=== PATIENT | female | born 1990 | race Caucasian/White ===

== ENCOUNTER 2021-05-10 03:36 | Emergency (ER) | payer OTHER, SELFPAY ==
[2021-05-10 05:41] LABS: Urine Blood Negative (Negative); Urine Glucose Negative (Negative); Urine Protein Trace (Negative); Urine pH 7.5 (5.0-7.0)
[2021-05-10 05:42] LABS: Absolute Lymphocytes (CBC) 1.7 K/uL (0.7-4.9); Basophils % 0.6 % (0-1.3); Hematocrit 38.6 % (36.0-45.0); Lymphocytes % 15.9 % (15.3-44.8); MPV 7.9 fL (7.6-11.3); RBC Red Blood Cell Count 5.18 M/uL (3.86-4.86)
[2021-05-10 06:05] LABS: Albumin 3.5 g/dL (3.4-5.0); Bilirubin Direct 0.4 mg/dL (0-0.2); Bilirubin Total 0.7 mg/dL (0.2-1.0); Potassium 3.9 mmol/L (3.5-5.1); Protein, Total 7.7 g/dL (6.4-8.2)
--- NOTE | 2021-05-10 06:35 | ER ---
Nurse's Notes [facility] Name: Blanche Bishop Age: 31 yrs Sex: Female : 1990 Arrival Date: 05/10/2021 Time: 03:44 Bed 13 Private MD: Diagnosis: Other cholelithiasis without obstruction Presentation: 05/10 04:31 Chief complaint: Patient states: lower abdominal pain that radiates into back that em started Tuesday, also reports N/D, denies fever. Coronavirus screen: Vaccine status: Patient reports receiving the 2nd dose of the covid vaccine. Ebola Screen: Patient negative for fever greater than or equal to 101.5 degrees Fahrenheit, and additional compatible Ebola Virus Disease symptoms Patient denies exposure to infectious person. Patient denies travel to an Ebola-affected area in the 21 days before illness onset. No symptoms or risks identified at this time. Initial Sepsis Screen: Does the patient meet any 2 criteria? No. Patient's initial sepsis screen is negative. Does the patient have a suspected source of infection? No. Patient's initial sepsis screen is negative. Risk Assessment: Do you want to hurt yourself or someone else? Patient reports no desire to harm self or others. Onset of symptoms was May 10, 2021. 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 - Social history:: Smoking status: Patient denies any tobacco usage or history of. Screenin:27 Abuse screen: Denies threats or abuse. Denies injuries from another. Nutritional bs2 screening: No deficits noted. Tuberculosis screening: No symptoms or risk factors identified. Fall Risk None identified. Assessment: 06:27 General: Appears uncomfortable, obese, well groomed, well developed, well nourished, bs2 Behavior is calm, cooperative, appropriate for age. Pain: Complains of pain in diaphragm Pain currently is 8 out of 10 on a pain scale. Pain began 2-3 days ago. Neuro: No deficits noted. Cardiovascular: No deficits noted. Respiratory: No deficits noted. GI: Reports lower abdominal pain, diarrhea, nausea. : No signs and/or symptoms were reported regarding the genitourinary system. EENT: No signs and/or symptoms were reported regarding the EENT system. Derm: No signs and/or symptoms reported regarding the dermatologic system. Musculoskeletal: No signs and/or symptoms reported regarding the musculoskeletal system. Vital Signs: 04:31 BP 132 / 85; Pulse 85; Resp 18; Temp 98.6(O); Pulse Ox 99% on R/A; Weight 136.08 kg; em Height 5 ft. 7 in. (170.18 cm); Pain 5/10; 05:30 BP 118 / 66; Pulse 72; Resp 16; Pulse Ox 100% on R/A; bs2 06:00 BP 126 / 70; Pulse 93; Resp 17; Pulse Ox 100% ; bs2 04:31 Body Mass Index 46.99 (136.08 kg, 170.18 cm) em ED Course: 03:44 Patient arrived in ED. wm 04:33 Triage completed. em 04:33 Arm band placed on. em 04:53 Trey Wells MD is Attending Physician. tw4 05:19 Sabra Strauss, RN is Primary Nurse. bs2 05:19 Abdomen Limited US Sent. bs2 05:37 Abdomen Limited US In Process Unspecified. EDMS 05:40 Inserted saline lock: 18 gauge in left antecubital area, using aseptic technique. bs2 06:26 Urine --Ancillary (enter results) Sent. bs2 06:26 Basic Metabolic Panel Sent. bs2 06:27 Patient has correct armband on for positive identification. Placed in gown. Bed in low bs2 position. Call light in reach. Side rails up X 1. Pulse ox on. NIBP on. Door closed. Noise minimized. Lights dimmed. Warm blanket given. 06:28 No provider procedures requiring assistance completed. bs2 07:00 IV discontinued, intact, bleeding controlled, No redness/swelling at site. bs2 Administered Medications: 06:26 Drug: Ketorolac 30 mg Route: IVP; Site: left antecubital; bs2 07:01 Follow up: Response: No adverse reaction; Pain is decreased bs2 Outcome: 06:34 Discharge ordered by . tw4 07:19 Discharged to home ambulatory. em 07:19 Condition: improved 07:19 Discharge instructions given to patient, Instructed on discharge instructions, follow up and referral plans. medication usage, Demonstrated understanding of instructions, follow-up care, medications, Prescriptions given X 1. 07:20 Patient left the ED. em Signatures: Dispatcher [employer] Jonathon Brian, RN RN Trey Bolivar MD MD tw4 Alma Delia Celis Bridget, RN RN bs2
--- NOTE | 2021-05-10 06:35 | EDPHYS ---
Physician Documentation [facility] Name: Blanche Bishop Age: 31 yrs Sex: Female : 1990 Arrival Date: 05/10/2021 Time: 03:44 Bed 13 Private MD: ED Physician Trey Wells HPI: 05/10 06:29 This 31 yrs old Female presents to ER via Ambulatory with complaints of tw4 Thinks she is having gallbladder issues. 06:29 The patient presents with abdominal pain. Onset: The symptoms/episode began/occurred tw4 today. The symptoms do not radiate. Associated signs and symptoms: none. The symptoms are described as dull. Modifying factors: The symptoms are alleviated by nothing, the symptoms are aggravated by nothing. The patient has not experienced similar symptoms in the past. 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 - Social history:: Smoking status: Patient denies any tobacco usage or history of. ROS: 06:29 Constitutional: Negative for fever, chills, and weight loss, Eyes: Negative for injury, tw4 pain, redness, and discharge, Cardiovascular: Negative for chest pain, palpitations, and edema, Respiratory: Negative for shortness of breath, cough, wheezing, and pleuritic chest pain, Back: Negative for injury and pain, MS/Extremity: Negative for injury and deformity, Skin: Negative for injury, rash, and discoloration, Neuro: Negative for headache, weakness, numbness, tingling, and seizure. 06:29 Abdomen/GI: Positive for abdominal pain, nausea and vomiting, nausea, vomiting, and diarrhea, nausea, vomiting, Negative for diarrhea, constipation, abdominal cramps, abdominal distension, anorexia, black/tarry stool, rectal pain, rectal bleeding, bowel incontinence. Exam: 06:31 Constitutional: This is a well developed, well nourished patient who is awake, alert, tw4 and in no acute distress. Head/Face: Normocephalic, atraumatic. Chest/axilla: Normal chest wall appearance and motion. Nontender with no deformity. No lesions are appreciated. Cardiovascular: Regular rate and rhythm with a normal S1 and S2. No gallops, murmurs, or rubs. Normal PMI, no JVD. No pulse deficits. Respiratory: Lungs have equal breath sounds bilaterally, clear to auscultation and percussion. No rales, rhonchi or wheezes noted. No increased work of breathing, no retractions or nasal flaring. Back: No spinal tenderness. No costovertebral tenderness. Full range of motion. Skin: Warm, dry with normal turgor. Normal color with no rashes, no lesions, and no evidence of cellulitis. MS/ Extremity: Pulses equal, no cyanosis. Neurovascular intact. Full, normal range of motion. Neuro: Awake and alert, GCS 15, oriented to person, place, time, and situation. Cranial nerves II-XII grossly intact. Motor strength 5/5 in all extremities. Sensory grossly intact. Cerebellar exam normal. Normal gait. 06:31 Abdomen/GI: Inspection: abdomen appears normal, Bowel sounds: normal, Palpation: moderate abdominal tenderness, in the right upper quadrant. Vital Signs: 04:31 BP 132 / 85; Pulse 85; Resp 18; Temp 98.6(O); Pulse Ox 99% on R/A; Weight 136.08 kg; em Height 5 ft. 7 in. (170.18 cm); Pain 5/10; 05:30 BP 118 / 66; Pulse 72; Resp 16; Pulse Ox 100% on R/A; bs2 06:00 BP 126 / 70; Pulse 93; Resp 17; Pulse Ox 100% ; bs2 04:31 Body Mass Index 46.99 (136.08 kg, 170.18 cm) em MDM: 06:31 Differential diagnosis: bowel obstruction, cholecystitis, Cholelithiasis, tw4 diverticulitis. Data reviewed: vital signs, nurses notes. Data interpreted: Pulse oximetry: Interpretation: normal. Counseling: I had a detailed discussion with the patient and/or guardian regarding: the historical points, exam findings, and any diagnostic results supporting the discharge/admit diagnosis. Special discussion: I discussed with the patient/guardian in detail that at this point there is no indication for admission to the hospital. It is understood, however, that if the symptoms persist or worsen the patient needs to return immediately for re-evaluation. 06:34 Patient medically screened. [facility] 05/10 04:36 Order name: Basic Metabolic Panel 05/10 04:36 Order name: CBC with Diff; Complete Time: 06:32 em 05/10 06:33 Interpretation: Normal except: MCV 74.5; MCH 24.7; NEUT A 8.3; CAMILO% 77.4; RBC 5.18. [facility] 05/10 04:36 Order name: Hepatic Function; Complete Time: 06:32 em 05/10 06:32 Interpretation: Normal except: AST 258; ALT 296; ALK 258; BILID 0.4; GLOB 4.2; A/G 0.8. [facility] 05/10 04:36 Order name: Lipase; Complete Time: 06:32 em 05/10 06:33 Interpretation: Within normal limits: LIP 163. [facility] 05/10 04:37 Order name: Basic Metabolic Panel; Complete Time: 06:32 EDMS 05/10 06:33 Interpretation: Normal except: GLUC 119; GFR 78. [facility] 05/10 05:41 Order name: Urine Dipstick-Ancillary; Complete Time: 06:32 EDMS 05/10 06:33 Interpretation: Normal except: UPROT Trace; UPH 7.5. [facility] 05/10 04:36 Order name: IV Saline Lock; Complete Time: 06:26 05/10 04:36 Order name: Labs collected and sent; Complete Time: 06:26 05/10 04:59 Order name: Abdomen Limited US [facility] 05/10 05:57 Order name: Urine Test (obtain specimen); Complete Time: 05:58 tt3 05/10 05:57 Order name: Urine --Ancillary (enter results) tt3 Administered Medications: 06:26 Drug: Ketorolac 30 mg Route: IVP; Site: left antecubital; bs2 07:01 Follow up: Response: No adverse reaction; Pain is decreased bs2 Disposition Summary: 05/10/21 06:34 Discharge Ordered Location: Home tw4 Problem: new tw4 Symptoms: have improved tw4 Condition: Stable tw4 Diagnosis - Other cholelithiasis without obstruction tw4 Followup: tw4 - With: Private Physician - When: Upon discharge from the Emergency Department - Reason: Recheck today's complaints, Continuance of care, Re-evaluation by your physician Discharge Instructions: - Discharge Summary Sheet tw4 - Cholelithiasis tw4 - Cholelithiasis, [id number] tw4 Forms: - Medication Reconciliation Form tw4 - Thank You Letter tw4 - Antibiotic Education tw4 - Prescription Opioid Use tw4 Prescriptions: - Ibuprofen 800 mg Oral Tablet - take 1 tablet by ORAL route every 8 hours As needed take with food; 30 tablet; tw4 Refills: 0, Product Selection Permitted Signatures: Dispatcher [employer] Jonathon Brian, RN RN Trey Bolivar MD MD tw4 Lanre Saavedra tt3 Sabra Strauss RN RN bs2 Corrections: (The following items were deleted from the chart) 06:33 06:32 Normal except: MCV 74.5; MCH 24.7; NEUT A 8.3; CAMILO% 77.4. tw4 tw4
[2021-05-10] MEDS ORDERED: KETOROLAC 30 MG/ML INJ ONE (06:46)
[2021-05-10 07:33] VITALS: TEMP 98.6
[2021-05-10 07:35] VITALS: O2SAT 100
[2021-05-10 07:36] VITALS: BP 126/70
--- NOTE | 2021-05-10 12:08 | RAD REPORT ---
EXAM DESCRIPTION: US - Abdomen Exam Limited - 05/10/2021 5:37 am CLINICAL HISTORY: ABD PAIN COMPARISON: No comparisons FINDINGS: The gallbladder demonstrates prominent gallstone measuring 15 mm. No pericholecystic fluid or gallbladder wall thickening. The common bile duct is normal measuring 4 mm. The liver demonstrates no findings of intrahepatic biliary dilatation. IMPRESSION: Cholelithiasis.
== END 2021-05-10 07:20 | disposition home or self-care (01) ==
LOC: ER 03:36
DX: K80.80 Other cholelithiasis without obstruction (principal)
CPT/HCPCS: 36415; 76705; 80048; 80076; 81003; 81025; 83690; 85025; 96374; 99284

== ENCOUNTER 2021-05-21 09:29 | Day surgery (SDC) | payer OTHER ==
[2021-05-19 13:25] LABS: Absolute Lymphocytes (CBC) 2.6 K/uL (0.7-4.9); Basophils % 0.5 % (0-1.3); Hematocrit 40.7 % (36.0-45.0); Lymphocytes % 27.3 % (15.3-44.8); MPV 8.5 fL (7.6-11.3); RBC Red Blood Cell Count 5.37 M/uL (3.86-4.86)
[2021-05-19 13:46] LABS: ALT/SGPT 35 U/L (12-78); AST/SGOT 6 U/L (15-37); Albumin 3.7 g/dL (3.4-5.0); Alkaline Phosphatase 106 U/L (45-117); Amylase 25 U/L (25-115); BUN Blood Urea Nitrogen 11 mg/dL (7-18); Bicarbonate 28 mmol/L (21-32); Bilirubin Direct 0.1 mg/dL (0-0.2); Bilirubin Total 0.2 mg/dL (0.2-1.0); Glucose Level 94 mg/dL (74-106); Potassium 4.1 mmol/L (3.5-5.1); Protein, Total 7.8 g/dL (6.4-8.2); Sodium Level 141 mmol/L (136-145)
[2021-05-21 09:55] LABS: Specific Gravity 1.015 (1.005-1.030)
[2021-05-21] MEDS ORDERED: Ringers Lactate 1,000 ML IV ONE (10:05)
[2021-05-21] MEDS ORDERED: CEFOXITIN/SWI 1gm 1 GM/10 ML SYR ONE (10:10)
[2021-05-21] MEDS ORDERED: propofoL 200 MG/20 ML VIAL IV ONE (10:42)
[2021-05-21] MEDS ORDERED: FENTANYL CITR 100 MCG/2 ML ONE (10:42)
[2021-05-21] MEDS ORDERED: dexAMETHasone 10 MG/ML VIAL ONE (10:43)
[2021-05-21] MEDS ORDERED: ONDANSETRON 4 MG/2 ML VIAL ONE (10:43)
[2021-05-21] MEDS ORDERED: MIDAZOLAM HCL 2 MG/2 ML INJ ONE (10:43)
[2021-05-21] MEDS ORDERED: LIDOCAINE 1% MPF 2 ML AMPULE ONE (10:43)
[2021-05-21] MEDS ORDERED: KETOROLAC 30 MG/ML INJ ONE (10:43)
[2021-05-21] MEDS ORDERED: ROCURONIUM 50 MG/5 ML VIAL IV ONE (10:43)
[2021-05-21] MEDS ORDERED: GLYCOPYRROLATE 0.2 MG/ML SYR ONE (11:43)
[2021-05-21] MEDS ORDERED: NEOSTIGMINE 1 MG/ML -5 ML ONE (11:51)
[2021-05-21] MEDS ORDERED: PROMETHAZINE INJ 25 MG/ML AMP ONE (12:08)
--- NOTE | 2021-05-21 12:13 | OP ---
Date of Procedure: 05/21/2021 Surgeon: Shun Carmona MD Skating Carhop: MACY Sibley Preoperative Diagnoses: Chronic cholecystitis, cholelithiasis, history of choledocholithiasis with a negative MRCP. Postoperative Diagnoses: Chronic cholecystitis, cholelithiasis, history of choledocholithiasis with a negative MRCP. Procedure: Laparoscopic cholecystectomy. Estimated Blood Loss: Minimal. Specimen: Gallbladder. Findings: As above. Anesthesia: General. Complications: None. Disposition: The patient tolerated the procedure in stable condition and taken to Recovery in good g eneral condition. Procedure In Detail: The patient was brought to the OR and placed in supine position. General anest hesia begun. The patient was prepped and draped in the usual sterile fashion. Marcaine 0.5% was inf iltrated locally. A 15-blade was used to make a 1 cm supraumbilical midline incision. Subcutaneous tissue divided. Fascia identified and divided. A #1 Vicryl stay suture was placed. Peritoneal cavi ty entered with sharp and blunt dissection. A 12 mm trocar was placed into the peritoneal cavity und er direct vision. Pneumoperitoneum was established. Then, three 5 mm trocars were placed, 1 in the epigastrium just to the right of midline and 2 in the right subcostal region. Laparoscopy revealed c hronic inflammation of the gallbladder. Fundus retracted superiorly. Infundibulum was identified an d retracted inferolaterally. Cystic duct and cystic artery were clearly identified with blunt dissec tion. Clips placed. Both structures were divided. Cautery used to remove the gallbladder from the liver bed. Bleeding on the liver bed controlled with cautery. Gallbladder was retrieved through the umbilicus via an EndoCatch bag. Right upper quadrant was irrigated. Effluent was clear. No eviden ce of bleeding or bile leakage appreciated. Subsequently, all trocars were removed under direct visi on. Stay sutures were tied to each other to approximate the fascial defect. Subcutaneous wounds irr igated. Bleeding controlled with cautery. A 3-0 chromic used to approximate the subcutaneous tissue and close the skin. Sterile dressing applied. The patient was awakened and taken to Recovery in go od general condition. Discharge Note: The patient will go to Day Surgery and home when stable. Disposition: Home. Condition: Stable. Discharge Instructions: Resume home medications and diet. Activity as tolerated. No heavy lifting. Remove outer dressing in 2 days. Shower. Keep wound clean and dry. Follow up in my office in [place]. Call for appointment. Tylenol No.3 one tablet p.o. q.4 p.r.n. pain. Incentive spirometer as o rdered and keep Steri-Strips on at all times. MARVIN/JUNAID Voice ID: [id number] Report ID: [id number]
[2021-05-21] MEDS ORDERED: HYDROCODONE/APAP 7.5/325 MG TAB ONE (13:27)
[2021-05-21 14:08] VITALS: BP 130/78; TEMP 98.1; O2SAT 95
== END 2021-05-21 14:05 | disposition home or self-care (01) ==
LOC: OR 09:29
PROVIDERS: ATTEND Surgery
PROC: 0FT44ZZ Resection of Gallbladder, Percutaneous Endoscopic Approach (ICD-10-PCS; principal; 2021-05-21 11:00)
DX: K80.10 Calculus of gallbladder with chronic cholecystitis without obstruction (principal); Z20.822 Contact with and (suspected) exposure to COVID-19
CPT/HCPCS: 85025; 80048; 36415; 82150; 81025; 80076; 88304; 47562; U0003; J2704; J2550; J2250; J3010; J1100; J2710; J7120; J2405